=== PATIENT | female | born 1940 | race Caucasian/White ===

== ENCOUNTER → 2016-04-30 17:01 | Outpatient (CLI) | payer MEDICARE ==
[2016-02-29 12:28] VITALS: BMI 29.4
[~2016-04-30 17:01] MED LIST: ATELVIA PO; BAYER CHEWABLE81 MG PO; PREDNISOLONE 110 ML LEFT EYE; [UNRECOGNIZED DRUG - OTHER]
== END | disposition home or self-care (01) ==
LOC: D.MAMMO 08:30
DX: R92.8 Other abnormal and inconclusive findings on diagnostic imaging of breast (principal)